=== PATIENT | male | born 1990 | race Caucasian/White ===

== ENCOUNTER 2022-10-13 16:41 | Emergency (ER) | payer OTHER, MEDICAID, SELFPAY ==
[2022-10-13 16:42] VITALS: BP 148/104; PULSE 112; RESP 16; TEMP 37; O2SAT 98; BMI 23.6
--- NOTE | 2022-10-13 18:10 | EDS_ITS ---
HPI History of Present Illness Chief Complaint: ETOH Intox Informant: patient Narrative Narrative: Patient presents with nausea and vomiting after heavy drinking. He drank about a half bottle of full 80 proof vodka. This was between yesterday evening and today about 10 AM. He drank this because he turned to alcohol. He was living with his brother but got kicked out. He is now living in a hotel. He does have a history of depression and is on hydroxyzine and trazodone. He does have these. He is not suicidal or homicidal. He does feel little depressed after getting kicked out. He used to drink heavily but has not drank in a long time. He is not having pain. Although he has vomited he seen no blood. He is concerned that he drank too much and might have alcohol poisoning. [facility] Medical History (Updated 10/13/22 @ 20:[address] Arun Moore MD) Anxiety Depression Home Medications hydroxyzine HCl 10 mg tablet 10 mg PO TID PRN Anxiety 10/13/22 [History Last Taken Unknown] ondansetron 4 mg disintegrating tablet 4 mg PO Q8H PRN nausea and vomiting #10 tabs 10/13/22 [Rx Last Taken Unknown] trazodone 150 mg tablet 150 mg PO QHS 10/13/22 [History Last Taken Unknown] Allergy/AdvReac Type Severity Reaction Status Date / Time azithromycin Allergy PT UNSURE Verified 10/13/22 16:45 OF REACTION Surgical History (Updated 10/13/22 @ 18:45 by Mary Daugherty) History of tonsillectomy Social History Smoking Status: Current every day smoker tobacco type: cigarettes ROS ROS ED Constitutional Constitutional ED: Denies chills or fever(s) Eyes Eyes: Denies change in vision or diplopia ENT ENT ED: Denies rhinorrhea or sore throat Cardiovascular Cardiovascular: Denies chest pain or palpitations Respiratory/Chest Respiratory/Chest: Denies cough or dyspnea Gastrointestinal Gastrointestinal: Reports nausea and vomiting; Denies abdominal pain, constipation, diarrhea or melena Genitourinary Genitourinary ED: Denies hematuria Musculoskeletal Musculoskeletal: Denies myalgias Integumentary Denies rash Neurologic Neurologic: Denies headache(s) Psychiatric Psychiatric: Reports anxiety and depression; Denies suicidal ideation or suicid al thoughts Endocrine Endocrinology: Denies polydipsia or polyuria Hematologic/Lymphatic Hematologic/Lymphatic: Denies easy bleeding or easy bruising Allergic/Immunologic Allergic/Immunologic ED: Denies urticaria EXAM Physical Exam Const Vital Signs: 10/13/22 16:42 10/13/22 18:42 Temperature 98.6 F Temperature Source Temporal Pulse Rate 112 H Respiratory Rate 16 18 Blood Pressure 148/104 H Blood Pressure Mean 118 Pulse Ox 98 Oxygen Delivery Method Room Air Room Air Positive well nourished and well developed General Appearance ED: well developed and NAD HEENT Reports dry mucous membranes Negative for trauma or tenderness Mouth ED: Yes dry mucous membranes Mouth: dry mucous membranes Eyes EOMs intact bilaterally Neck no lymphadenopathy Chest Wall inspection of chest normal Resp normal respiratory effort and clear to auscultation bilaterally Cardio regular rhythm Rate: tachycardic GI normal to inspection, nondistended, normoactive bowel sounds and non-tender Back/Spine no CVA tenderness Extremity normal to inspection General Extremety ED: Negative for edema General Extremity: Negative for edema Psych mental status grossly normal Attitude: No agitated Mood & Affect: Negative for depressed, anxious or tearful Skin no rashes or lesions noted MDM MDM MDM Narrative Medical decision making narrative: Electrolytes show no acute process. AST and ALT were mildly elevated on liver function test. Alcohol was up a bit at 128. Social work saw him. He will be given information for follow-up. He does not meet criteria for admission. He has not drank in many months. He drank a single time last night and does not need detox. He is not suicidal or homicidal. I will give him a few Zofran in case he has any further issues at home but his nausea is resolved and he has had fluids. Lab Data Attestation: I reviewed the patient's lab results. Labs: Laboratory Results - last 24 hr 10/13/22 10/13/22 18:24 18:24 Sodium 141 Potassium 3.5 Chloride 100 Carbon Dioxide 28.0 Anion Gap 13 BUN 5 L Creatinine 0.87 Estim Creat Clear Calc 116.84 Est GFR (MDRD) Af Amer 130 Est GFR (MDRD) Non-Af 107 BUN/Creatinine Ratio 5.8 L Glucose 105 Calcium 9.4 Total Bilirubin 0.90 AST 139 H ALT 144 H Alkaline Phosphatase 78 Total Protein 8.1 Albumin 4.1 Globulin 4.0 Albumin/Globulin Ratio 1.0 Lipase 75 Ethyl Alcohol 128.0 Discharge Plan Triage Chief Complaint: ETOH Intox ED Provider: Arun Moore Dx/Rx/DC Orders Clinical Impression: Alcohol intoxication, Nausea & vomiting Instructions: ED Alcohol Abuse Prescriptions: New ondansetron 4 mg tablet,disintegrating 4 mg PO Q8H PRN (Reason: nausea and vomiting) Qty: 10 0RF No Action trazodone 150 mg Tablet 150 mg PO QHS hydroxyzine HCl 10 mg Tablet 10 mg PO TID PRN (Reason: Anxiety) Primary Care Provider: Care Physician,No Primary Referrals: Elias Kwan MD [Med Staff - Saw Superintendent] - As Needed Care Physician,No Primary [Primary Care Provider] - Disposition Disposition: Home, Self Care
[2022-10-13] MEDS: 0.9% Normal Saline 1,000 ML 1000 ML IV (18:39)
[2022-10-13] MEDS: Ondansetron 4 MG/2 ML Vial IV ×2 (18:39→20:25)
[2022-10-13 18:42] VITALS: RESP 18
[2022-10-13 18:50] LABS: AST(SGOT) 139 U/L (15-37); Alanine Aminotransfer ALT/SGPT 144 U/L (16-61); Albumin, Serum 4.1 g/dL (3.2-5.0); Alkaline Phosphatase 78 U/L (45-117); Anion Gap 13 (5-15); BUN 5 mg/dL (7-18); BUN/Creat Ratio 5.8 RATIO (10-20); Calcium,Total 9.4 mg/dL (8.5-10.1); Chloride 100 mmol/L (98-107); Creatinine, Serum 0.87 mg/dL (0.70-1.30); EST Glomerular Filtration Rate 107 mL/min (>60); Est Glom Filt Rate - Afr Amer 130 mL/min (>60); Estimated Creatinine Clearance 116.84 ml/min; Glucose 105 mg/dL (74-106); Lipase 75 U/L (73-393); Potassium 3.5 mmol/L (3.5-5.1); Protein, Total 8.1 g/dL (6.4-8.2); Sodium Level 141 mmol/L (136-145)
--- NOTE | 2022-10-13 20:02 | CM.ED ---
Social Work Consult: Resources Referral source: Nursing staff This geriatric social work professor met with patient in room. Introduced self and geriatric social work professor role. Patient agreeable to speak with this geriatric social work professor. Patient reports to be homeless as of last week. Patient reports to be new to the area and to have moved to [place] to stay with patient brother. Patient reports to have started to drink again and patient brother kicked patient out due to my drinking. Patient reports history of alcohol abuse and to have been sober for awhile until patient started drinking again last week. Patient reports to now be staying in a hotel and to have one more night in the hotel before patient has nowhere to go. This geriatric social work professor provided patient with [facility], counseling agencies, [facility] resources, [facility] and crisis hotline number. Patient denies mental health diagnosis but reports to be depressed. Patient denies suicidal thoughts, plans, intents or history of. This geriatric social work professor encouraged patient to reach out to the [facility] (information found on the street card) for a place to stay and to assist with housing resources as patient reports plan to stay in the area. Patient denies further needs. Active support and listening provided. Nursing staff updated on above. Chuck TATE, ASHLYN
[2022-10-13 20:18] VITALS: BP 147/99; PULSE 99; RESP 18; O2SAT 99
== END 2022-10-13 20:44 | disposition home or self-care (01) ==
PROVIDERS: Emergency Provider Emergency Medicine; Visit Provider Emergency Medicine
DX: F10.129 Alcohol abuse with intoxication, unspecified (principal); R11.2 Nausea with vomiting, unspecified; F17.210 Nicotine dependence, cigarettes, uncomplicated; F32.A Depression, unspecified; Z79.899 Other long term (current) drug therapy
CPT/HCPCS: 80053; 82077; 83690; 96361; 96374; 96376; 99282; A4216; J2405